=== PATIENT | female | born 1980 | race Two or more races ===

== ENCOUNTER 2019-09-16 08:41 | Emergency (ER) | payer OTHER ==
[2019-09-16 08:56] VITALS: TEMP 98.2
[2019-09-16] MEDS ORDERED: SODIUM CHLORIDE 0.9% 1,000 ML IV ONE ×2 (08:59)
[2019-09-16 09:36] LABS: Basophils # (A) 0.1 k/uL (0-0.2); Basophils % (A) 1 %; Eosinophils # (A) 0.1 k/uL (0-0.7); Eosinophils % (A) 2 %; HCT 46.8 % (34.0-46.0); HGB 15.6 gm/dL (11.4-16.0); Lymphocytes # (A) 2.7 k/uL (1.0-4.8); Lymphocytes % (A) 38 %; MCH 30.6 pg (25.0-35.0); MCHC 33.4 g/dL (31.0-37.0); MCV 91.7 fL (80.0-100.0); Mean Platelet Volume 7.2; Monocytes # (A) 0.4 k/uL (0-1.0); Monocytes % (A) 5 %; Neutrophils # (A) 3.6 k/uL (1.3-7.7); Neutrophils % (A) 51 %; Platelet Count 331 k/uL (150-450); RBC 5.11 m/uL (3.80-5.40); RDW 12.5 % (11.5-15.5)
[2019-09-16 09:49] LABS: INR 0.9 (<1.2); Partial Thromboplastin Time 24.4 sec (22.0-30.0); Prothrombin Time 9.9 sec (9.0-12.0)
[2019-09-16 09:56] LABS: Appearance,Urine Clear (Clear); Bilirubin,Urine Negative (Negative); Blood,Urine Large (Negative); Color,Urine Light Red; Glucose,Urine (UA) Negative (Negative); Ketones,Urine Negative (Negative); Leukocyte Esterase,Urine Negative (Negative); Mucus,Urine Occasional /hpf; Nitrite,Urine Negative (Negative); PH, Urine 5.5 (5.0-8.0); Protein,Urine Trace (Negative); RBC,Urine >182 /hpf (0-5); Specific Gravity,Urine 1.023 (1.001-1.035); Squamous Epithelial Cell,Urine <1 /hpf (0-4); Urobilinogen,Urine <2.0 mg/dL (<2.0); WBC,Urine 12 /hpf (0-5)
--- NOTE | 2019-09-16 09:58 | ED ---
Female Urogenital HPI - General Chief complaint: Vaginal Bleeding Stated complaint: 8 wks , vaginal bleeding Time Seen by Provider: 09/16/19 08:58 Source: patient, RN notes reviewed, old records reviewed Mode of arrival: ambulatory Limitations: no limitations - History of Present Illness Initial comments: Patient is a 38 rolled female, approximately 8 weeks . She is a female. Previous elective age 20. She states that she is approximately 8 weeks , does have an upcoming appointment with Dr. Reyes. She has not seen Dr. Reyes yet for this . She states that today she started have some lower abdominal cramping, heavy vaginal bleeding. Patient states that she's had no fevers or chills. She denies changes in urination. Last Menstrual Period: 07/24/19 - Related Data Allergies Allergy/AdvReac Type Severity Reaction Status Date / Time No Known Allergies Allergy Verified 09/16/19 08:56 Review of Systems ROS Statement: Those systems with pertinent positive or pertinent negative responses have been documented in the HPI. ROS Other: All systems not noted in ROS Statement are negative. Past Medical History Past Medical History: No Reported History History of Any Multi-Drug Resistant Organisms: None Reported Past Surgical History: No Surgical Hx Reported Past Psychological History: No Psychological Hx Reported Smoking Status: Never smoker Past Alcohol Use History: Rare Past Drug Use History: None Reported General Exam - General Exam Comments Initial Comments: This 38-year-old female. Alert and oriented. No acute distress. Limitations: no limitations General appearance: alert, in no apparent distress Head exam: Present: atraumatic, normocephalic, normal inspection Eye exam: Present: normal appearance, PERRL, EOMI. Absent: scleral icterus, conjunctival injection, periorbital swelling ENT exam: Present: normal exam, mucous membranes moist Neck exam: Present: normal inspection. Absent: tenderness, meningismus, lymphadenopathy Respiratory exam: Present: normal lung sounds bilaterally. Absent: respiratory distress, wheezes, rales, rhonchi, stridor Cardiovascular Exam: Present: regular rate, normal rhythm, normal heart sounds. Absent: systolic murmur, diastolic murmur, rubs, gallop, clicks GI/Abdominal exam: Present: soft, normal bowel sounds. Absent: distended, tenderness, guarding, rebound, rigid External exam: Present: normal external exam, other (Patient declined pelvic exam) Extremities exam: Present: normal inspection, full ROM, normal capillary refill. Absent: tenderness, pedal edema, joint swelling, calf tenderness Back exam: Present: normal inspection, full ROM Neurological exam: Present: alert Psychiatric exam: Present: normal affect, normal mood Skin exam: Present: warm, dry, intact, normal color. Absent: rash Course Vital Signs 09/16/19 08:53 Temperature 98.2 F Pulse Rate 93 Respiratory 18 Rate Blood Pressure 132/88 O2 Sat by Pulse 100 Oximetry Medical Decision Making - Medical Decision Making 8-year-old female, . She presents today partially weeks based off last menstrual period. She presents today for vaginal bleeding starting today. She is Rh+. HCG levels 3800. Patient's ultrasound shows a gestational sac but no heart rate. Discussed this is likely miscarriage. She declined pelvic exam. Patient appears in no distress and has no significant abdominal pain or tenderness. Discusses threatened miscarriage. I discussed the case with Dr. Smith who will have the Patient follow up with the office on Wednesday. I discussed repeating hCG level. All questions were answered return parameters discussed. - Lab Data Result diagrams: 09/16/19 09:17 Lab Results 09/16/19 09/16/19 09/16/19 Range/Units 09:17 09:17 09:17 WBC 7.0 (3.8-10.6) k/uL RBC 5.11 (3.80-5.40) m/uL Hgb 15.6 (11.4-16.0) gm/dL Hct 46.8 H (34.0-46.0) % MCV 91.7 (80.0-100.0) fL MCH 30.6 (25.0-35.0) pg MCHC 33.4 (31.0-37.0) g/dL RDW 12.5 (11.5-15.5) % Plt Count 331 (150-450) k/uL Neutrophils % 51 % Lymphocytes % 38 % Monocytes % 5 % Eosinophils % 2 % Basophils % 1 % Neutrophils # 3.6 (1.3-7.7) k/uL Lymphocytes # 2.7 (1.0-4.8) k/uL Monocytes # 0.4 (0-1.0) k/uL Eosinophils # 0.1 (0-0.7) k/uL Basophils # 0.1 (0-0.2) k/uL PT 9.9 (9.0-12.0) sec INR 0.9 (<1.2) APTT 24.4 (22.0-30.0) sec HCG, Quant mIU/mL Urine Color Urine Appearance (Clear) Urine pH (5.0-8.0) Ur Specific [place] (1.001-1.035) Urine Protein (Negative) Urine Glucose (UA) (Negative) Urine Ketones (Negative) Urine Blood (Negative) Urine Nitrite (Negative) Urine Bilirubin (Negative) Urine Urobilinogen (<2.0) mg/dL Ur Leukocyte Esterase (Negative) Urine RBC (0-5) /hpf Urine WBC (0-5) /hpf Ur Squamous Epith Cells (0-4) /hpf Urine Mucus (None) /hpf Urine HCG, Qual (Not Detectd) Blood Type O Positive Blood Type Recheck No Previous Record Bld Type Recheck Status [facility] ONLY 09/16/19 09/16/19 09/16/19 Range/Units 09:17 09:23 09:23 WBC (3.8-10.6) k/uL RBC (3.80-5.40) m/uL Hgb (11.4-16.0) gm/dL Hct (34.0-46.0) % MCV (80.0-100.0) fL MCH (25.0-35.0) pg MCHC (31.0-37.0) g/dL RDW (11.5-15.5) % Plt Count (150-450) k/uL Neutrophils % % Lymphocytes % % Monocytes % % Eosinophils % % Basophils % % Neutrophils # (1.3-7.7) k/uL Lymphocytes # (1.0-4.8) k/uL Monocytes # (0-1.0) k/uL Eosinophils # (0-0.7) k/uL Basophils # (0-0.2) k/uL PT (9.0-12.0) sec INR (<1.2) APTT (22.0-30.0) sec HCG, Quant 3227.3 mIU/mL Urine Color Light Red Urine Appearance Clear (Clear) Urine pH 5.5 (5.0-8.0) Ur Specific [place] 1.023 (1.001-1.035) Urine Protein Trace H (Negative) Urine Glucose (UA) Negative (Negative) Urine Ketones Negative (Negative) Urine Blood Large H (Negative) Urine Nitrite Negative (Negative) Urine Bilirubin Negative (Negative) Urine Urobilinogen <2.0 (<2.0) mg/dL Ur Leukocyte Esterase Negative (Negative) Urine RBC >182 H (0-5) /hpf Urine WBC 12 H (0-5) /hpf Ur Squamous Epith Cells <1 (0-4) /hpf Urine Mucus Occasional H (None) /hpf Urine HCG, Qual Detected (Not Detectd) Blood Type Blood Type Recheck Bld Type Recheck Status - Radiology Data Radiology results: report reviewed Ultrasound shows gestational sac in the lower uterus. No heart tone seen at this time. demise. Short-term follow-up and serially G suggested. Disposition Clinical Impression: Threatened miscarriage Disposition: HOME SELF-CARE Condition: Good Instructions (If sedation given, give patient instructions): Threatened Miscarriage (ED) Additional Instructions: Patient advised to repeat hCG level on Wednesday. Following up with [facility] office Wednesday. Patient shouldn't have pelvic rest, limit heavy lifting. Encourage fluid intake. Motrin or Tylenol for pain. Is patient prescribed a controlled substance at d/c from ED?: No Referrals: Lucía Sigala DO [Primary Care Provider] - 1-2 days Time of Disposition: 11:05
--- NOTE | 2019-09-16 10:31 | US ---
EXAMINATION TYPE: Transabdominal DATE OF EXAM: 09/16/2019 10:04 AM COMPARISON: NONE CLINICAL HISTORY: pain and bleeding. EXAM PERFORMED: Transabdominal (TA) EXAM MEASUREMENTS: GESTATIONAL AGE / DATING Physician Established: Not yet established Dates by LMP: (7 weeks/5 days) EDC: Dates by First Scan: No previous this is first scan Dates by Current Scan for: ( weeks/ days) EDC: MATERNAL ANATOMY Uterus: 12.9 x 7.0 x 9.2cm, fibroid uterus, largest measuring 4.0cm Right Ovary: 2.7 x 1.7 x 1.2cm Left Ovary: 1.0 x 1.0 x 1.1cm Post CDS / Adnexa: wnl Presence of free fluid: no Presence of subchorionic bleed: no GESTATION / SURVEY CRL: 0.4 (6 weeks/0 days) MSD: 1.0cm (5 weeks/ 0 days) Yolk Sac (normal less than 6mm): 3mm Heart Rate: no heart tones seen by m-mode, power doppler or color doppler. Gestational sac situ ated low in uterus. No heart tones seen at this time. Date of LMP: 07/24/19 Beta HcG (if available): IMPRESSION: NO HEART VALVE ACTIVITY IS NOTED AT THIS TIME. I COULD NOT EXCLUDE DEMISE. SHORT-TERM FOL LOW-UP +/- SERIAL BETA HCGS WOULD BE SUGGESTED.
[2019-09-16 11:22] VITALS: BP 115/68; PULSE 79; RESP 16
== END 2019-09-16 11:21 | disposition home or self-care (01) ==
LOC: EC 08:41
DX: O20.0 Threatened abortion (principal); Z3A.00 Weeks of gestation of pregnancy not specified
CPT/HCPCS: 36415; 76801; 81001; 81025; 84702; 85025; 85610; 85730; 86900; 86901; 96360; 96361; 99284

== ENCOUNTER → 2019-09-18 | Outpatient (CLI) | payer OTHER | END | disposition home or self-care (01) | LOC: LABWHC1 08:55 | PROVIDERS: ATTEND Physician Assistant Medical | DX: O20.0 Threatened abortion (principal) | CPT/HCPCS: 36415; 84702 ==

== ENCOUNTER → 2019-10-03 | Outpatient (CLI) | payer BC ==
[2019-10-03 23:28] LABS: HCG,Quantitative Serum <2.0 mIU/mL
[2019-10-04 02:55] LABS: Toxoplasma Antibody (IgG) <3.0 IU/mL (<7.2); Toxoplasma Antibody (IgM) <3.0 AU/mL (<8.0)
== END ==
LOC: LABWHC1 16:47
PROVIDERS: ATTEND Obstetrics & Gynecology
DX: O03.9 Complete or unspecified spontaneous abortion without complication (principal); Z13.29 Encounter for screening for other suspected endocrine disorder
CPT/HCPCS: 36415; 84439; 84443; 84702; 86777; 86778

== ENCOUNTER 2020-02-16 03:09 | Emergency (ER) | payer BC, OTHER ==
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
[2020-02-16 05:59] VITALS: BP 126/74; PULSE 89; RESP 118; TEMP 98.9
== END 2020-02-16 05:57 | disposition home or self-care (01) ==
LOC: EC 03:09
DX: Z04.1 Encounter for examination and observation following transport accident (principal); Y92.410 Unspecified street and highway as the place of occurrence of the external cause
CPT/HCPCS: 36415; 84702; 86900; 86901; 99284

== ENCOUNTER 2020-09-12 14:58 | Outpatient (CLI) | payer BC ==
[2020-09-12 15:31] LABS: Creatinine,Urine Random 61.9 mg/dL; Protein/Creatinine Ratio,Urine 0.178
[2020-09-12 15:47] LABS: Appearance,Urine Clear (Clear); Bilirubin,Urine Negative (Negative); Blood,Urine Negative (Negative); Color,Urine Light Yellow; Glucose,Urine (UA) Negative (Negative); Ketones,Urine 2+ (Negative); Leukocyte Esterase,Urine Negative (Negative); Nitrite,Urine Negative (Negative); Protein,Urine Negative (Negative); Specific Gravity,Urine 1.016 (1.001-1.035); Urobilinogen,Urine <2.0 mg/dL (<2.0)
[2020-09-12 15:50] LABS: Basophils % (A) 0 %; Eosinophils # (A) 0.1 k/uL (0-0.7); Eosinophils % (A) 1 %; HCT 37.3 % (34.0-46.0); HGB 12.4 gm/dL (11.4-16.0); Lymphocytes % (A) 20 %; MCH 30.4 pg (25.0-35.0); MCHC 33.2 g/dL (31.0-37.0); MCV 91.6 fL (80.0-100.0); Mean Platelet Volume 8.7; Monocytes # (A) 0.5 k/uL (0-1.0); Monocytes % (A) 5 %; Neutrophils # (A) 7.2 k/uL (1.3-7.7); Neutrophils % (A) 72 %; Platelet Count 259 k/uL (150-450); RBC 4.07 m/uL (3.80-5.40); RDW 13.5 % (11.5-15.5)
[2020-09-12 16:03] LABS: ALT 16 U/L (4-34); AST 20 U/L (14-36); African American GFR (CKD) >90 (>60 ml/min/1.73 sqM); Blood Urea Nitrogen 14 mg/dL (7-17); LDH 357 U/L (313-618); Non-African American GFR(CKD) >90 (>60 ml/min/1.73 sqM); Uric Acid 4.5 mg/dL (3.7-7.4)
--- NOTE | 2020-09-26 08:51 | P.MSEPDOC ---
Presenting Problems - Arrival Data Date of Arrival on Unit: 09/12/20 Time of Arrival on Unit: 15:00 Mode of Transport: Ambulatory Disposition - Disposition OB Disposition: Discharge to home Discharge Date: 09/12/20 Discharge Time: 16:52 I agree with the RN Medical Screening Exam: Yes Case reviewed; plan agreed upon as documented in EMR&OBIX.: Yes Diagnosis: GESTATIONAL HTN W/O SIGNIFICANT PROTEINURIA, THIRD TRIMESTER
== END 2020-09-12 16:52 | disposition home or self-care (01) ==
LOC: FBPOP 14:58
PROVIDERS: ATTEND Obstetrics & Gynecology
DX: O13.3 Gestational [pregnancy-induced] hypertension without significant proteinuria, third trimester (principal); Z3A.00 Weeks of gestation of pregnancy not specified
CPT/HCPCS: 59025; 81003; 82565; 82570; 83615; 84156; 84450; 84460; 84520; 84550; 85025; 99215

== ENCOUNTER → 2020-09-19 | Outpatient (CLI) | payer BC ==
[2020-09-19 16:55] LABS: Creatinine,Urine Random 46.9 mg/dL; Protein/Creatinine Ratio,Urine 0.213
[2020-09-19 23:35] LABS: HGB 11.9 g/dL (12.0-15.0); MCH 29.8 pg (27.0-32.0); MCHC 32.2 g/dL (32.0-37.0); MCV 92.7 fL (80.0-97.0); Mean Platelet Volume 11.2 fL (9.5-12.2); Platelet Count 264 X 10*3/uL (140-440); RBC 3.99 X 10*6/uL (4.10-5.20); RDW 12.6 % (11.5-14.5); WBC 9.04 X 10*3/uL (4.50-10.00)
[2020-09-20 06:40] LABS: Non-African American GFR(CKD) 116.4 (60.0-200.0); Uric Acid 4.4 mg/dL (2.9-7.7)
== END | disposition home or self-care (01) ==
LOC: LABWHC1 15:00
PROVIDERS: ATTEND Obstetrics & Gynecology
DX: O13.9 Gestational [pregnancy-induced] hypertension without significant proteinuria, unspecified trimester (principal); Z3A.00 Weeks of gestation of pregnancy not specified
CPT/HCPCS: 36415; 82565; 82570; 83615; 84156; 84450; 84460; 84520; 84550; 85027

== ENCOUNTER 2020-10-01 06:12 | Inpatient (IN) | payer BC ==
--- NOTE | 2020-09-30 12:31 | P.HPOB ---
History of Present Illness H&P Date: 09/30/20 Chief Complaint: Gestational HTN, Gestational DM This is a 39 y.o. female, 3, para 0, with an estimated date of confinement of 10/18/2020, estimated gestational age of 37-4/7 weeks, who presents for induction of labor due to gestational hypertension. Labs have been negative for preeeclampsia and she has no symptoms other than elevated blood pressures. Her has also been complicated by gestational diabetes and has been controlled with diet. She has been seen by MFM and has been getting twice weekly NSTs and growth ultrasounds. She does have several large fibroids. labs: Hepatitis B surface antigen-neg RPR-NR Rubella-immune Blood type-O+ Antibody screen-neg Hemoglobin-13.4 Toxoplasma-neg Quad-neg 1 hr. GTT-181; 3 hr. GTT-all high Group B streptococcus-positive OB Hx: . History of 1 termination and 1 miscarriage. 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 Hx of uterine fibroids Social Hx: . Works at [employer]. Review of Systems Constitutional: Denies chills, Denies fever Eyes: denies blurred vision, denies pain Ears, nose, mouth and throat: Denies headache, Denies sore throat Cardiovascular: Denies chest pain, Denies shortness of breath Respiratory: Denies cough Gastrointestinal: Reports abdominal pain (irreg. ctxs) Genitourinary: Reports pelvic pain, Reports Musculoskeletal: Reports low back pain Integumentary: Denies pruritus, Denies rash Neurological: Denies numbness, Denies weakness Psychiatric: Denies anxiety, Denies depression Past Medical History Additional Past Medical History / Comment(s): Uterine fibroids; Gestational hypertension; Gestational diabetes History of Any Multi-Drug Resistant Organisms: None Reported Past Surgical History: No Surgical Hx Reported Past Psychological History: No Psychological Hx Reported Smoking Status: Never smoker Past Alcohol Use History: None Reported Past Drug Use History: None Reported - Past Family History Mother Family Medical History: Unable to Obtain (Pt. adopted) Medications and Allergies Home Medications Medication Instructions Recorded Confirmed Type Aspirin 81 mg PO DAILY 09/12/20 09/12/20 History Pnv No.95/Ferrous Fum/Folic AC 1 each PO DAILY 09/12/20 09/12/20 History [ Multivitamin Tablet] Allergies Allergy/AdvReac Type Severity Reaction Status Date / Time No Known Allergies Allergy Verified 02/16/20 03:16 Exam Osteopathic Statement: *. No significant issues noted on an osteopathic structural exam other than those noted in the History and Physical/Consult. HEENT: within normal limits Heart: regular rate and rhythm Lungs: clear to auscultation bilaterally Abdomen: , non-tender heart tones: 150's by doppler Cervix: 1-1.5 cm/50%/-2 Extremities: neg. Leticia's Assessment and Plan (1) 37 weeks gestation of Status: Acute Code(s): Z3A.37 - 37 WEEKS GESTATION OF SNOMED Code(s): 52952753 (2) Gestational hypertension Status: Acute Code(s): O13.9 - GESTATIONAL HTN W/O SIGNIFICANT PROTEINURIA, UNSP TRIMESTER SNOMED Code(s): 613063637 (3) Gestational diabetes Status: Acute Code(s): O24.419 - GESTATIONAL DIABETES MELLITUS IN , UNSP CONTROL SNOMED Code(s): 73353566 (4) Advanced maternal age (AMA) in Status: Acute Code(s): VAT0696 - SNOMED Code(s): 502332586 (5) Leiomyoma in , uterine, antepartum Status: Acute Code(s): O34.10 - MATERNAL CARE FOR BENIGN TUMOR OF CORPUS UTERI, UNSP TRI; D25.9 - LEIOMYOMA OF UTERUS, UNSPECIFIED SNOMED Code(s): 04074785 (6) Group B Streptococcus carrier, +RV culture, currently Status: Acute Code(s): O99.820 - STREPTOCOCCUS B CARRIER STATE COMPLICATING SNOMED Code(s): 1921841370877 Plan: Admission for induction of labor. Will monitor sugars and blood pressures. Antibiotic prophylaxis for GBS. Epidural anesthesia if desired. Expectant management.
[2020-10-01] MEDS ORDERED: OXYTOCIN 30 UNITS/500 ML NS 30 UNIT in SALINE 1 500ML.BAG IV SCH ×2 (06:32→22:09)
[2020-10-01] MEDS ORDERED: OXYTOCIN 10 UNIT/ML 1 ML VIAL IM PRN (06:32)
[2020-10-01] MEDS ORDERED: LIDOCAINE 1% (10MG/ML) FOR IV START INTRADERMA PRN (06:32)
[2020-10-01] MEDS ORDERED: METHYLERGONOVINE 0.2 MG/ML 1 ML AMP IM PRN (06:32)
[2020-10-01] MEDS ORDERED: LIDOCAINE 0.5% (PF) 5 MG/ML (50 ML SDV) SQ PRN (06:32)
[2020-10-01] MEDS ORDERED: CARBOPROST TROMETHAMINE 250 MCG/ML 1 ML AMP IM PRN (06:32)
[2020-10-01] MEDS ORDERED: TERBUTALINE 1 MG/ML VIAL SQ PRN (06:32)
[2020-10-01 06:47] LABS: Basophils # (A) 0.1 k/uL (0-0.2); Basophils % (A) 1 %; Eosinophils # (A) 0.1 k/uL (0-0.7); Eosinophils % (A) 1 %; HCT 37.6 % (34.0-46.0); HGB 12.4 gm/dL (11.4-16.0); Lymphocytes # (A) 1.7 k/uL (1.0-4.8); Lymphocytes % (A) 23 %; MCH 29.9 pg (25.0-35.0); MCHC 32.9 g/dL (31.0-37.0); MCV 90.9 fL (80.0-100.0); Mean Platelet Volume 8.7; Monocytes # (A) 0.5 k/uL (0-1.0); Monocytes % (A) 6 %; Neutrophils # (A) 5.2 k/uL (1.3-7.7); Neutrophils % (A) 69 %; Platelet Count 252 k/uL (150-450); RBC 4.14 m/uL (3.80-5.40); RDW 12.9 % (11.5-15.5); WBC 7.6 k/uL (3.8-10.6)
[2020-10-01 06:51] LABS: Glucose,Whole Blood 80 mg/dL (75-99)
[2020-10-01] MEDS: LACTATED RINGERS 1,000 ML IV SCH ×2 (06:59→15:26)
[2020-10-01 09:32] LABS: Glucose,Whole Blood 71 mg/dL (75-99)
[2020-10-01] MEDS: AMPICILLIN 1,000 MG in SODIUM CHLORIDE 0.9% 50 ML IVPB SCH ×3 (10:55→19:13)
[2020-10-01 11:46] LABS: Glucose,Whole Blood 68 mg/dL (75-99)
[2020-10-01] MEDS: BUTORPHANOL 1 MG/ML 1 ML VIAL IV PRN ×2 (15:01→17:06)
--- NOTE | 2020-10-01 15:06 | P.PN ---
Progress Note - Text Progress Note Date: 10/01/[address] epidural catheter 3 times for the laboring patient. I was able to achieve loss of resistance each time, however on each attempt I was unable to thread the epidural catheter even with dilating the space with normal saline. I asked the patient if she would like me to attempt again, she said she would not like to try again as the procedure was uncomfortable. Patient did not experience any neurologic symptoms or radicular pain during the procedure and according to her has no history of back issues.
[2020-10-01 15:07] LABS: Glucose,Whole Blood 76 mg/dL (75-99)
[2020-10-01 15:17] LABS: Hemoglobin A1C 5.5 % (4.0-6.0)
[2020-10-01] MEDS ORDERED: LABETALOL 5 MG/ML VIAL MDV IVP STA ×3 (15:56→17:00)
[2020-10-01] MEDS: LABETALOL 5 MG/ML VIAL MDV IVP STA ×2 (16:10→16:27)
[2020-10-01] MEDS ORDERED: hydrALAZINE HCL 20 MG/ML 1 ML VIAL IVP STA ×2 (17:18)
[2020-10-01 18:56] LABS: Glucose,Whole Blood 143 mg/dL (75-99)
[2020-10-01] MEDS ORDERED: CITRIC ACID-SODIUM CITRATE 15 ML CUP PO ONE (19:46)
[2020-10-01] MEDS ORDERED: MORPHINE SULFATE (PF) 0.3 MG/0.3 ML SYR ONE (19:54)
[2020-10-01] MEDS ORDERED: ONDANSETRON 4 MG/2 ML VIAL ONE (19:54)
[2020-10-01] MEDS ORDERED: KETOROLAC 15 MG/ML 1 ML VIAL ONE (19:54)
[2020-10-01] MEDS ORDERED: fentaNYL (PF) 50 MCG/ML 2 ML AMP ONE (19:54)
[2020-10-01] MEDS ORDERED: OXYTOCIN 10 UNIT/ML 1 ML VIAL ONE (19:54)
--- NOTE | 2020-10-01 20:53 | P.OP ---
Date of Procedure: 10/01/20 Preoperative Diagnosis: 1. Intrauterine at 37-5/7 weeks. 2. Gestational hypertension. 3. Gestational diabetes. 4. Failure to progress 5. Advanced maternal age 6. Group B streptococcus carrier. 7. Uterine leiomyoma. Postoperative Diagnosis: Same Procedure(s) Performed: Primary low transverse section Anesthesia: spinal (Duramorph) Surgeon: Sadia Reyes [facility] Consultant #1: Edilma Garcia Estimated Blood Loss (ml): 300 Pathology: other (Placenta) Condition: stable Disposition: floor Indications for Procedure: This is a 39-year-old female 3 para 0 at 37-5/7 weeks who presented for induction of labor due to gestational hypertension. Her was also complicated by uterine fibroids and gestational diabetes. She underwent oxytocin induction of labor. She did receive multiple doses of antibiotics due to positive group B streptococcus carrier. Epidural was attempted but was unavailable be placed. She was given Stadol for pain control. She also required multiple doses of labetalol and 1 dose of hydralazine to control her blood pressures during labor. All of her pre-eclamptic labs were negative. She had no other symptoms. She pushed for over 2 hours and was unable to bring the head down any further. There was noted to be some caput at this time. In addition the patient was exhausted and was requesting section. I have discussed the risks, benefits, and alternative therapies for the above- mentioned procedure and for both sedation/anesthesia as well as necessary blood products administration, if indicated, as they pertain to this patient. The patient has indicated her understanding and acceptance of the risks and procedures discussed. Operative Findings: A viable female is noted with scores of 6 at 1 minute and 9 at 5 minutes and infant weight of 5 pounds 13.8 ounces. Nuchal cord times one was noted. There was a large amount of caput noted. Mother is in stable condition. was transported to nursery for further evaluation. Fairly large uterine fibroids were noted especially on the left fundal region. Description of Procedure: The patient is taken to the operating room where she is placed in the dorsal supine position with leftward tilt after spinal Duramorph anesthesia is given. She is prepped and draped in the normal sterile fashion. Skin was tested and found to be adequately anesthetized. A Pfannenstiel skin incision was made with a scalpel. A second knife was used to carry the incision down to the underlying layer of fascia. The fascia was nicked in the midline with a scalpel and then extended laterally bilaterally with Ngo scissors. The anterior lip of the fascia was grasped with 2 Julienne clamps and then dissected off the underlying rectus muscle in the midline with Ngo scissors. The inferior aspect of the fascial incision was grasped with 2 Julienne clamps and dissected off the underlying rectus muscle and the midline with Ngo scissors. Next the peritoneum layer was tented up with 2 hemostats and then entered sharply with the scalpel. The incision is extended superiorly and inferiorly with Metzenbaum scissors. Next a DeLee retractor is placed. The vesicouterine peritoneum is entered sharply with Metzenbaum scissors and extended laterally bilaterally with Metzenbaum scissors and then the bladder flap is pushed inferiorly. The lower uterine segment is incised in transverse fashion with the scalpel and then bluntly entered with a hemostat. Clear fluid is noted. The incision was then extended laterally bilaterally with 2 fingers. Next the 's head is delivered through the incision. Nose and mouth are bulb suctioned. The remainder of the is easily delivered and placed on mother's abdomen. Cord is clamped and cut. is taken to warmer by nursing staff. Uterine fundus is gently massaged and placenta is delivered manually. Uterus was unable to be exteriorized due to large fibroids on the fundal area and the left fundus especially. The DeLee retractor was replaced for visualization. Uterine incision is closed with 0 Vicryl suture in a running locked fashion. A second layer of 0 Vicryl suture is used in a running fashion for hemostasis. Once adequate hemostasis as assured, the vesicouterine peritoneum is reapproximated with 2-0 Vicryl suture in a running fashion. Posterior cul-de-sac is suctioned of all clots and debris. Incision is noted to be hemostatic. Peritoneal layer is closed with 0 Vicryl suture in a running fashion. Muscle layer is reapproximated with 0 Vicryl suture in interrupted fashion. Fascia layer is then closed with 0 PDS suture with 2 sutures meeting in the midline and the knots buried in either side and in the midline. The subcutaneous tissue was then closed with 2-0 Vicryl suture. Skin layer was then closed with tyler. All sponge and needle counts are correct. The patient is taken to recovery room in stable condition.
[2020-10-01] MEDS ORDERED: LANOLIN CREAM 5 GM TUBE TOPICAL PRN (22:09)
[2020-10-01] MEDS ORDERED: diphenhydrAMINE 50 MG/ML 1 ML VIAL IVP PRN ×2 (22:09)
[2020-10-01] MEDS ORDERED: HYDROcodone/APAP 7.5-325MG 1 EACH TAB PO PRN (22:09)
[2020-10-01] MEDS ORDERED: ONDANSETRON 4 MG/2 ML VIAL IVP PRN (22:09)
[2020-10-01] MEDS ORDERED: diphenhydrAMINE 50 MG CAP PO PRN (22:09)
[2020-10-01] MEDS ORDERED: ACETAMINOPHEN TAB 325 MG TAB PO PRN (22:09)
[2020-10-01] MEDS ORDERED: ZOLPIDEM 5 MG TAB PO PRN (22:09)
[2020-10-01] MEDS ORDERED: METOCLOPRAMIDE 5 MG/ML 2 ML VIAL IVP PRN (22:09)
[2020-10-01] MEDS ORDERED: NALOXONE 0.4 MG/ML 1 ML VIAL IV PRN (22:09)
[2020-10-01] MEDS ORDERED: SIMETHICONE 80 MG CHEWABLE PO PRN (22:09)
[2020-10-01] MEDS ORDERED: diphenhydrAMINE 25 MG CAP PO PRN (22:09)
[2020-10-01] MEDS ORDERED: KETOROLAC 15 MG/ML 1 ML VIAL IVP PRN (22:09)
[2020-10-02 06:49] LABS: Basophils % (A) 0 %; Eosinophils % (A) 0 %; HCT 35.7 % (34.0-46.0); HGB 11.4 gm/dL (11.4-16.0); Lymphocytes # (A) 1.7 k/uL (1.0-4.8); Lymphocytes % (A) 8 %; MCH 29.8 pg (25.0-35.0); MCV 93.1 fL (80.0-100.0); Mean Platelet Volume 8.9; Monocytes % (A) 5 %; Neutrophils # (A) 18.2 k/uL (1.3-7.7); Neutrophils % (A) 87 %; Platelet Count 277 k/uL (150-450); RBC 3.84 m/uL (3.80-5.40); RDW 13.1 % (11.5-15.5); WBC 21.1 k/uL (3.8-10.6)
--- NOTE | 2020-10-02 06:50 | P.PN ---
Progress Note - Text Progress Note Date: 10/02/20 Postoperative day 1 status post section under spinal anesthesia, and intrathecal morphine given for postoperative analgesia, patient doing well, there is no anesthesia related complications Patient had no headache, vital signs stable Assessment and plan = postop day 1 status post , doing well there is no anesthesia related complication
[2020-10-02] MEDS: SENNOSIDES-DOCUSATE SODIUM 1 EACH TAB PO SCH ×2 (08:16→22:11)
--- NOTE | 2020-10-02 08:42 | P.PNOBGPC ---
Subjective - Subjective Principal diagnosis: S/P Primary LTCS POD#1, Gestational HTN, GDM, Fibroids Interval history: Pt. doing ok. Working on breast-feeding. No flatus or BM yet. Patient reports: Reports pain well controlled [place]: doing well, nursing well Objective - Vital Signs Latest vital signs: Vital Signs Temp Pulse Resp BP Pulse Ox 10/02/20 08:00 98.3 F 81 16 115/68 98 10/02/20 04:00 98.1 F 75 16 99/58 99 10/02/20 00:30 98.0 F 10/02/20 00:00 97.9 F 66 16 113/62 10/01/20 22:49 98.0 F 61 16 118/75 10/01/20 22:19 97.9 F 60 16 117/69 10/01/20 21:49 64 16 112/66 10/01/20 21:34 62 16 116/67 10/01/20 21:19 63 16 110/62 10/01/20 21:04 63 16 108/59 10/01/20 20:49 97.3 F L 61 18 104/55 97 Intake and Output 10/01/20 10/02/20 10/02/20 22:59 06:59 14:59 Output Total 1050 400 Balance -1050 -400 Output: Urine 150 400 Uretheral (Shin) 200 Estimated Blood Loss 900 - Exam Extremities: Present: normal. Absent: tenderness Abdomen: Present: soft (faint BS x 4), distention Incision: Present: normal, dry, intact. Absent: erythematous Uterus: Present: normal, firm. Absent: tenderness - Labs Labs: Abnormal Lab Results - Last 24 Hours (Table) 10/01/20 10/01/20 10/01/20 Range/Units 09:30 11:44 18:52 WBC (3.8-10.6) k/uL Neutrophils # (1.3-7.7) k/uL POC Glucose (mg/dL) 71 L 68 L 143 H (75-99) mg/dL 10/02/20 Range/Units 06:16 WBC 21.1 H (3.8-10.6) k/uL Neutrophils # 18.2 H (1.3-7.7) k/uL POC Glucose (mg/dL) (75-99) mg/dL Assessment and Plan Assessment: S/P PLTCS POD#1 Gestational HTN, currently well-controlled GDM-diet controlled (1) 37 weeks gestation of Current Visit: No Status: Acute Code(s): Z3A.37 - 37 WEEKS GESTATION OF SNOMED Code(s): 23988422 (2) Gestational hypertension Current Visit: No Status: Acute Code(s): O13.9 - GESTATIONAL HTN W/O SIGNIFICANT PROTEINURIA, UNSP TRIMESTER SNOMED Code(s): 688003579 (3) Gestational diabetes Current Visit: No Status: Acute Code(s): O24.419 - GESTATIONAL DIABETES MELLITUS IN , UNSP CONTROL SNOMED Code(s): 47126685 (4) Advanced maternal age (AMA) in Current Visit: No Status: Acute Code(s): QFU8073 - SNOMED Code(s): 679513364 (5) Leiomyoma in , uterine, antepartum Current Visit: No Status: Acute Code(s): O34.10 - MATERNAL CARE FOR BENIGN TUMOR OF CORPUS UTERI, UNSP TRI; D25.9 - LEIOMYOMA OF UTERUS, UNSPECIFIED SNOMED Code(s): 79435380 (6) Group B Streptococcus carrier, +RV culture, currently Current Visit: No Status: Acute Code(s): O99.820 - STREPTOCOCCUS B CARRIER STATE COMPLICATING SNOMED Code(s): 0293342270671 Plan: Cont. postop care. Encouraged ambulation. May advance diet after flatus. Will monitor BP.
[2020-10-02] MEDS: LACTATED RINGERS 1,000 ML IV SCH ×3 (08:48→17:31)
[2020-10-03] MEDS: IBUPROFEN 600 MG TAB PO PRN ×2 (07:14→17:08)
[2020-10-03] MEDS: SENNOSIDES-DOCUSATE SODIUM 1 EACH TAB PO SCH ×2 (08:58→22:07)
--- NOTE | 2020-10-03 11:38 | P.PNOBGPC ---
Subjective - Subjective Principal diagnosis: S/P PLTCS POD#2 Interval history: Pt. c/o more soreness today. Still working on breast-feeding. Baby on bili light. Passing flatus, but no BM yet. Has been ambulating. Only taking Motrin for pain. Doesn't want the [place]. Did get behind on pain meds yesterday. Bleeding minimal. Patient reports: Reports appetite normal, Reports voiding normally, Reports ambulating normally [place]: doing well, nursing well Objective - Vital Signs Latest vital signs: Vital Signs Temp Pulse Resp BP Pulse Ox 10/03/20 08:00 98.4 F 82 16 153/77 10/03/20 00:00 98.0 F 108 H 14 134/77 98 10/02/20 20:00 98.8 F 64 14 144/84 98 10/02/20 16:00 98.8 F 80 16 148/90 96 10/02/20 11:48 97.6 F 90 16 130/82 98 Intake and Output 10/02/20 10/03/20 10/03/20 22:59 06:59 14:59 Output Total 300 Balance -300 Output: Urine 300 Other: # Voids 0 1 - Exam Extremities: Present: normal. Absent: tenderness Abdomen: Present: normal appearance, soft (+BS x 4.), distention (less), tender ness (mild) Incision: Present: normal, dry, intact. Absent: erythematous Uterus: Present: normal, firm. Absent: tenderness Assessment and Plan Assessment: S/P PLTCS POD#2 Gestational HTN Gestational DM Uterine fibroids (1) 37 weeks gestation of Current Visit: No Status: Acute Code(s): Z3A.37 - 37 WEEKS GESTATION OF SNOMED Code(s): 72634049 (2) Gestational hypertension Current Visit: No Status: Acute Code(s): O13.9 - GESTATIONAL HTN W/O SIGNIFICANT PROTEINURIA, UNSP TRIMESTER SNOMED Code(s): 155823097 (3) Gestational diabetes Current Visit: No Status: Acute Code(s): O24.419 - GESTATIONAL DIABETES MELLITUS IN , UNSP CONTROL SNOMED Code(s): 76441891 (4) Advanced maternal age (AMA) in Current Visit: No Status: Acute Code(s): HAC0216 - SNOMED Code(s): 416494108 (5) Leiomyoma in , uterine, antepartum Current Visit: No Status: Acute Code(s): O34.10 - MATERNAL CARE FOR BENIGN TUMOR OF CORPUS UTERI, UNSP TRI; D25.9 - LEIOMYOMA OF UTERUS, UNSPECIFIED SNOMED Code(s): 23571239 (6) Group B Streptococcus carrier, +RV culture, currently Current Visit: No Status: Acute Code(s): O99.820 - STREPTOCOCCUS B CARRIER STATE COMPLICATING SNOMED Code(s): 2393678231456 Plan: Will work on keeping up with pain meds today. Encouraged to take ibuprofen every 6 hours and alternate with Tylenol if needed.
[2020-10-03] MEDS: HYDROcodone/APAP 5-325MG 1 EACH TAB PO PRN (23:49)
[2020-10-04] MEDS: IBUPROFEN 600 MG TAB PO PRN ×2 (08:16→19:26)
--- NOTE | 2020-10-04 09:00 | P.PNOBGPC ---
Subjective - Subjective Principal diagnosis: Status post primary section postoperative day #3 Interval history: Patient is doing okay. Her pain is fairly well controlled with ibuprofen. She did take 1 dose of [place] last night. Lochia is decreasing. She is passing flatus and some bowel movement. She is still worried about her baby not feeding well and has been converting to bottle since she is unable to produce enough milk. Baby is still on a bili light. Patient reports: Reports appetite normal, Reports voiding normally, Reports pain well controlled, Reports ambulating normally : bottle feeding Objective - Vital Signs Latest vital signs: Vital Signs Temp Pulse Resp BP Pulse Ox 10/04/20 07:44 97.9 F 77 16 147/96 10/04/20 00:17 97.9 F 68 16 136/85 98 10/03/20 18:03 97.8 F 99 16 148/82 10/03/20 17:02 98.4 F 10/03/20 13:04 98.9 F 74 16 152/89 - Exam Extremities: Present: normal. Absent: tenderness Abdomen: Present: normal appearance, soft (Positive bowel sounds 4), distention (Slight), tenderness (Mild) Incision: Present: normal, dry, intact. Absent: erythematous Uterus: Present: normal, firm. Absent: tenderness Assessment and Plan Assessment: S/P PLTCS POD#3 Gestational HTN Gestational DM Uterine fibroids (1) 37 weeks gestation of Current Visit: No Status: Acute Code(s): Z3A.37 - 37 WEEKS GESTATION OF SNOMED Code(s): 71886268 (2) Gestational hypertension Current Visit: No Status: Acute Code(s): O13.9 - GESTATIONAL HTN W/O SIGNIFICANT PROTEINURIA, UNSP TRIMESTER SNOMED Code(s): 761791972 (3) Gestational diabetes Current Visit: No Status: Acute Code(s): O24.419 - GESTATIONAL DIABETES MELLITUS IN , UNSP CONTROL SNOMED Code(s): 97930504 (4) Advanced maternal age (AMA) in Current Visit: No Status: Acute Code(s): PNO1093 - SNOMED Code(s): 941272772 (5) Leiomyoma in , uterine, antepartum Current Visit: No Status: Acute Code(s): O34.10 - MATERNAL CARE FOR BENIGN TUMOR OF CORPUS UTERI, UNSP TRI; D25.9 - LEIOMYOMA OF UTERUS, UNSPECIFIED SNOMED Code(s): 39613696 (6) Group B Streptococcus carrier, +RV culture, currently Current Visit: No Status: Acute Code(s): O99.820 - STREPTOCOCCUS B CARRIER STATE COMPLICATING SNOMED Code(s): 4595322803677 Plan: Patient is still having some isolated elevated blood pressures but not enough to treat. She denies any other symptoms of headaches, blurry vision, or epigastric pain. She is doing better with her pain control. This baby is still on the bili light, I have suggested that she might want to stay 1 more day even if baby is able to go home. I will check back later today and see how baby is and if patient feels that she is ready to go home today or not. I Will order a breast pump so that she can at least try to pump some of her breast milk and give that baby also.
[2020-10-04] MEDS: SENNOSIDES-DOCUSATE SODIUM 1 EACH TAB PO SCH ×2 (10:47→21:31)
[2020-10-04] MEDS: LABETALOL 200 MG TAB PO SCH ×2 (12:21→21:30)
[2020-10-04] MEDS: HYDROcodone/APAP 5-325MG 1 EACH TAB PO PRN (21:30)
--- NOTE | 2020-10-05 06:32 | P.PNOBGPC ---
Subjective - Subjective Principal diagnosis: Status post primary section postoperative day #4 Interval history: Patient is feeling better today. She is passing flatus and bowel movement. She is urinating without difficulty. She states that her pain is much better using [place]. She is bottle feeding at this time. Lochia is minimal. She denies any headaches or blurry vision. Patient reports: Reports appetite normal, Reports voiding normally, Reports pain well controlled, Reports ambulating normally [place]: doing well (Still on a bili blanket), bottle feeding Objective - Vital Signs Latest vital signs: Vital Signs Temp Pulse Resp BP BP Pulse Ox 10/04/20 21:00 97.9 F 76 16 154/86 97 10/04/20 13:49 82 14 131/89 10/04/20 12:00 76 16 169/108 10/04/20 11:56 97.6 F 71 16 160/101 10/04/20 07:44 97.9 F 77 16 147/96 - Exam Extremities: Present: normal, edema (Trace) Abdomen: Present: normal appearance, soft (Positive bowel sounds 4). Absent: distention, tenderness Incision: Present: normal, dry, intact. Absent: erythematous Uterus: Present: normal, firm. Absent: tenderness Assessment and Plan Assessment: Status post primary section postoperative day #4 Gestational hypertension Gestational diabetes Uterine fibroids (1) 37 weeks gestation of Current Visit: No Status: Acute Code(s): Z3A.37 - 37 WEEKS GESTATION OF SNOMED Code(s): 24299708 (2) Gestational hypertension Current Visit: No Status: Acute Code(s): O13.9 - GESTATIONAL HTN W/O SIGNIFICANT PROTEINURIA, UNSP TRIMESTER SNOMED Code(s): 472271680 (3) Gestational diabetes Current Visit: No Status: Acute Code(s): O24.419 - GESTATIONAL DIABETES MELLITUS IN , UNSP CONTROL SNOMED Code(s): 94559205 (4) Advanced maternal age (AMA) in Current Visit: No Status: Acute Code(s): MFZ7375 - SNOMED Code(s): 890930772 (5) Leiomyoma in , uterine, antepartum Current Visit: No Status: Acute Code(s): O34.10 - MATERNAL CARE FOR BENIGN TUMOR OF CORPUS UTERI, UNSP TRI; D25.9 - LEIOMYOMA OF UTERUS, UNSPECIFIED SNOMED Code(s): 30646687 (6) Group B Streptococcus carrier, +RV culture, currently Current Visit: No Status: Acute Code(s): O99.820 - STREPTOCOCCUS B CARRIER STATE COMPLICATING SNOMED Code(s): 7425414825711 Plan: Patient is anxious to go home today however her blood pressure this morning was elevated at 165/95. She has been on labetalol 200 mg twice a day since yesterday. Since labetalol did not work very well for her in labor, I will discontinue this and switch to Procardia 30 XL daily starting this morning. If her blood pressures improve, I will send her home on Procardia and have her follow up with me in the office within 1 week for a blood pressure check. If baby does need to stay another day, I will keep her 1 more day to ensure that her blood pressures stay stable.
--- NOTE | 2020-10-05 06:42 | P.DS ---
Providers Date of admission: 10/01/20 06:12 Expected date of discharge: 10/05/20 Attending physician: Sadia Reyes Primary care physician: Stated None - Discharge Diagnosis(es) (1) 37 weeks gestation of Current Visit: No Status: Acute (2) Gestational hypertension Current Visit: No Status: Acute (3) Gestational diabetes Current Visit: No Status: Acute (4) Advanced maternal age (AMA) in Current Visit: No Status: Acute (5) Leiomyoma in , uterine, antepartum Current Visit: No Status: Acute (6) Group B Streptococcus carrier, +RV culture, currently Current Visit: No Status: Acute Hospital Course: This is a 39-year-old female 3 para 0 at 37-5/7 weeks who presented for induction of labor due to gestational hypertension. She underwent oxytocin induction of labor and did require multiple doses of labetalol followed by Apresoline while in labor to control her blood pressures. She then required a primary section due to failure to descend after pushing for almost 2 hours. She delivered a viable female infant with scores of 6 at 1 minute and 9 at 5 minutes and infant weight of 5 lbs. 14 oz. on 10/01/2020 via section. Postoperatively she did initially do well but then her blood pressure started elevating again. She did have some pain control issues at first and currently is more controlled on ibuprofen and Miracle. Her lochia is minimal. She is urinating without difficulty. She is passing flatus and bowel movements. She denies any headaches or blurry vision or epigastric pain. She was attempting breast-feeding but has switched to bottle feeding currently. Her baby has been on a bili light due to jaundice. Vital signs are stable other than her blood pressure was elevated this morning at 165/95. Abdomen is soft with positive bowel sounds 4. Incision is clean dry and intact with tyler in place. Extremities show negative Hom[place] with trace edema. Impression is status post primary low transverse section postoperative day #4, gestational hypertension, gestational diabetes, uterine fibroids. Plan is to switch from labetalol to Procardia 30 XL this morning. As long as her blood pressures are stable on this medication, I will discharge her later today. She also has been counseled regarding opioid use and has signed a consent form for Miracle. She will be given prescriptions for ibuprofen and Miracle. She also is advised follow-up in the office within 1 week for a postoperative appointment and in 6 weeks for a appointment. She is advised to call the office if she has any further questions or concerns prior to her appointment time. [place] will be removed and Steri-Strips placed prior to discharge. Procedures: Oxytocin induction of labor Primary low transverse section for a viable female infant on 10/01/2020 Patient Condition at Discharge: Stable Plan - Discharge Summary New Discharge Prescriptions: New Ibuprofen [Motrin] 600 mg PO Q6HR PRN #60 tab PRN Reason: Mild Pain Or Fever >= 100.5 HYDROcodone/APAP 5-325MG [Miracle 5-325] 1 each PO Q4HR PRN #30 tab PRN Reason: Moderate Pain NIFEdipine XL [Procardia XL] 30 mg PO DAILY #30 tab.er.24 Continue Pnv No.95/Ferrous Fum/Folic AC [ Multivitamin Tablet] 1 each PO DAILY Discontinued Aspirin 81 mg PO DAILY Discharge Medication List Pnv No.95/Ferrous Fum/Folic AC [ Multivitamin Tablet] 1 each PO DAILY 09/12/20 [History] HYDROcodone/APAP 5-325MG [Miracle 5-325] 1 each PO Q4HR PRN #30 tab 10/05/20 [Rx] Ibuprofen [Motrin] 600 mg PO Q6HR PRN #60 tab 10/05/20 [Rx] NIFEdipine XL [Procardia XL] 30 mg PO DAILY #30 tab.er.24 10/05/20 [Rx] Follow up Appointment(s)/Referral(s): Sadia Reyes DO [Doctor of Osteopathic Medicine] - 1 Week Activity/Diet/Wound Care/Special Instructions: Instructions 1. Do not begin any exercise program for 3 weeks. 2. Do not resume sexual relations for 3 weeks or longer if uncomfortable. 3. You may take tub baths or showers at any time. 4. You may use tampons if desired after 3 weeks. 5. Keep the area of episiotomy (stitches) clean and dry. 6. If you are not nursing, wear a good fitting, supportive bra during the day and limit fluid intake for at least 1 week to prevent breast engorgement. 7. Call the office, [phone], within the next week to make appointment for your 6 week checkup if it has not already been made. 8. Report any of the following occurrences to the doctor promptly: a. Heavy, excessive bleeding b. Chills, fever c. Burning or frequency of urination d. Pain or redness and breasts if nursing e. Increasing pain or swelling in episiotomy (stitches). In addition to the above instructions, the following additional should be followed: 1. No heavy lifting or straining (exercising) until after 6 week checkup. 2. Keep abdominal incision clean and dry: You may wear a dressing if more comfortable. 3. Make office appointment for 10 days after going home or as instructed by her doctor. Discharge Disposition: HOME SELF-CARE
[2020-10-05] MEDS ORDERED: NIFEdipine XL 30 MG TAB.ER.24 PO STA (06:48)
[2020-10-05] MEDS ORDERED: NIFEdipine XL 30 MG TAB.ER.24 PO SCH (09:00)
[2020-10-05] MEDS: SENNOSIDES-DOCUSATE SODIUM 1 EACH TAB PO SCH (09:21)
[2020-10-05] MEDS: IBUPROFEN 600 MG TAB PO PRN (09:23)
[2020-10-05 12:32] LABS: Basophils % (A) 0 %; Eosinophils # (A) 0.2 k/uL (0-0.7); Eosinophils % (A) 2 %; HCT 33.8 % (34.0-46.0); HGB 11.3 gm/dL (11.4-16.0); Lymphocytes # (A) 1.6 k/uL (1.0-4.8); Lymphocytes % (A) 16 %; MCH 30.4 pg (25.0-35.0); MCHC 33.3 g/dL (31.0-37.0); MCV 91.4 fL (80.0-100.0); Mean Platelet Volume 8.2; Monocytes # (A) 0.4 k/uL (0-1.0); Monocytes % (A) 5 %; Neutrophils # (A) 7.2 k/uL (1.3-7.7); Neutrophils % (A) 76 %; Platelet Count 296 k/uL (150-450); RDW 12.9 % (11.5-15.5); WBC 9.5 k/uL (3.8-10.6)
[2020-10-05 12:41] LABS: ALT 44 U/L (4-34); AST 38 U/L (14-36); African American GFR (CKD) >90 (>60 ml/min/1.73 sqM); Alkaline Phosphatase 133 U/L (38-126); Anion Gap 6 mmol/L; Blood Urea Nitrogen 11 mg/dL (7-17); Calcium 8.8 mg/dL (8.4-10.2); Carbon Dioxide 27 mmol/L (22-30); Chloride 105 mmol/L (98-107); Glucose 76 mg/dL (74-99); LDH 1087 U/L (313-618); Non-African American GFR(CKD) >90 (>60 ml/min/1.73 sqM); Potassium 4.3 mmol/L (3.5-5.1); Sodium 138 mmol/L (137-145); Total Bilirubin 0.6 mg/dL (0.2-1.3); Total Protein 5.9 g/dL (6.3-8.2); Uric Acid 4.2 mg/dL (3.7-7.4)
[2020-10-05] MEDS ORDERED: CALCIUM GLUCONATE 1 GM/10 ML VIAL IV PRN (12:57)
--- NOTE | 2020-10-05 13:05 | P.CRDCN ---
History of Present Illness Consult date: 10/05/20 History of present illness: This is a very pleasant 39-year-old female patient who was diagnosed recently with gestational and underwent . We consulted to see the patient to control the blood pressure. The patient was diagnosed with preeclampsia. Her liver function test came in to be elevated. She was initially started on labetalol but the pressure continues to be elevated and because of that labetalol was stopped and the patient was started on Procardia 30 mg by mouth daily. We consulted to her for further evaluation on management of elevated blood pressure. Her pressure continues to be elevated with an average systolic pressure around 150 mmHg to 160 mmHg. Clinically the patient is doing very well. She denies any symptoms of chest pain or chest discomfort or shortness of breath or dizziness or lightheadedness or any feeling of heart racing or fluttering. She does have bilateral lower extremities and edema. Her cardiovascular examination revealed regular rate and rhythm. No EKG was performed and the patient is in process of getting an EEG. Also she is in process of getting an echocardiogram was Doppler. 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 Past Medical History Past Medical History: No Reported History Additional Past Medical History / Comment(s): Uterine fibroids; Gestational hypertension; Gestational diabetes History of Any Multi-Drug Resistant Organisms: None Reported Past Surgical History: No Surgical Hx Reported Past Psychological History: No Psychological Hx Reported Smoking Status: Never smoker Past Alcohol Use History: None Reported Past Drug Use History: None Reported - Past Family History Mother Family Medical History: Unable to Obtain Medications and Allergies Home Medications Medication Instructions Recorded Confirmed Type Pnv No.95/Ferrous Fum/Folic AC 1 each PO DAILY 09/12/20 09/12/20 History [ Multivitamin Tablet] HYDROcodone/APAP 5-325MG [[place] 1 each PO Q4HR PRN #30 tab 10/05/20 Rx 5-325] Ibuprofen [Motrin] 600 mg PO Q6HR PRN #60 tab 10/05/20 Rx NIFEdipine XL [Procardia XL] 30 mg PO DAILY #30 tab.er.24 10/05/20 Rx Allergies Allergy/AdvReac Type Severity Reaction Status Date / Time No Known Allergies Allergy Verified 10/01/20 06:32 Physical Exam Vitals: Vital Signs Temp Pulse Resp BP BP Pulse Ox 02/20/21 11:53 169/99 160/93 10/05/20 08:30 149/87 10/05/20 08:00 74 15 10/05/20 06:42 179/108 10/05/20 06:00 98.0 F 74 15 161/86 98 10/04/20 22:00 97.9 F 75 16 141/84 97 10/04/20 21:00 97.9 F 76 16 154/86 97 10/04/20 13:49 82 14 131/89 Intake and Output 10/04/20 10/05/20 10/05/20 22:59 06:59 14:59 Other: Voiding Method Toilet - Constitutional General appearance: no acute distress - Respiratory Respiratory: bilateral: CTA - Cardiovascular Rhythm: regular Heart sounds: normal: S1, S2 Results 10/05/20 12:11 10/05/20 12:11 Cardiac Enzymes 10/05/20 Range/Units 12:11 AST 38 H (14-36) U/L Lactate Dehydrogenase 1087 H (313-618) U/L CBC 10/05/20 Range/Units 12:11 WBC 9.5 (3.8-10.6) k/uL RBC 3.70 L (3.80-5.40) m/uL Hgb 11.3 L (11.4-16.0) gm/dL Hct 33.8 L (34.0-46.0) % Plt Count 296 (150-450) k/uL Comprehensive Metabolic Panel 10/05/20 Range/Units 12:11 Sodium 138 (137-145) mmol/L Potassium 4.3 (3.5-5.1) mmol/L Chloride 105 (98-107) mmol/L Carbon Dioxide 27 (22-30) mmol/L BUN 11 (7-17) mg/dL Creatinine 0.57 (0.52-1.04) mg/dL Glucose 76 (74-99) mg/dL Calcium 8.8 (8.4-10.2) mg/dL AST 38 H (14-36) U/L ALT 44 H (4-34) U/L Alkaline Phosphatase 133 H (38-126) U/L Total Protein 5.9 L (6.3-8.2) g/dL Albumin 3.0 L (3.5-5.0) g/dL Current Medications Generic Name Dose Route Start Last Admin Trade Name Freq PRN Reason Stop Dose Admin Acetaminophen 650 mg 10/01/20 22:09 10/03/20 20:13 Acetaminophen Tab 325 Mg Tab PO 650 mg Q4HR PRN Administration Mild Pain or Fever >= 100.5 Hydrocodone Bitart/Acetaminophen 1 each 10/01/20 22:09 10/04/20 21:30 Hydrocodone/Apap 5-325mg 1 Each Tab PO 1 each Q4HR PRN Administration Moderate Pain Hydrocodone Bitart/Acetaminophen 1 each 10/01/20 22:09 Hydrocodone/Apap 7.5-325mg 1 Each Tab PO Q6H PRN Severe Pain Butorphanol Tartrate 1 mg 10/01/20 14:57 10/01/20 17:06 Butorphanol 1 Mg/Ml 1 Ml Vial IV 1 mg Q2HR PRN Administration Pain Diphenhydramine HCl 25 mg 10/01/20 22:09 Diphenhydramine 25 Mg Cap PO Q6HR PRN Mild Itching Diphenhydramine HCl 50 mg 10/01/20 22:09 Diphenhydramine 50 Mg Cap PO Q6HR PRN Moderate to Severe itching Diphenhydramine HCl 25 mg 10/01/20 22:09 Diphenhydramine 50 Mg/Ml 1 Ml Vial IVP Q6HR PRN Mild Itching Diphenhydramine HCl 50 mg 10/01/20 22:09 Diphenhydramine 50 Mg/Ml 1 Ml Vial IVP Q6HR PRN Moderate to Severe Itching Emollient Ointment 1 applic 10/01/20 22:09 Lanolin Cream 5 Gm Tube TOPICAL Q2HR PRN Breast Feeding Ibuprofen 600 mg 10/01/20 22:09 10/05/20 09:23 Ibuprofen 600 Mg Tab PO 600 mg Q6HR PRN Administration Mild Pain or Fever >= 100.5 Ketorolac Tromethamine 15 mg 10/01/20 22:09 10/02/20 03:07 Ketorolac 15 Mg/Ml 1 Ml Vial IVP 10/06/20 22:10 15 mg Q6HR PRN Administration Mild Pain Metoclopramide HCl 10 mg 10/01/20 22:09 Metoclopramide 5 Mg/Ml 2 Ml Vial IVP Q6HR PRN Nausea And Vomiting Naloxone HCl 0.2 mg 10/01/20 22:09 Naloxone 0.4 Mg/Ml 1 Ml Vial IV Q2M PRN Opioid Reversal Nifedipine 30 mg 10/06/20 09:00 Nifedipine Xl 30 Mg Tab.Er.24 PO DAILY [facility] Ondansetron HCl 4 mg 10/01/20 22:09 Ondansetron 4 Mg/2 Ml Vial IVP Q24H PRN Nausea And Vomiting Oxytocin 10 unit 10/01/20 06:32 Oxytocin 10 Unit/Ml 1 Ml Vial IM ONCE PRN Post Hemorrhage Senna/Docusate Sodium 2 each 10/02/20 08:00 10/05/20 09:21 Sennosides-Docusate Sodium 1 Each Tab PO Not Given BID@0800,1999 [facility] Simethicone 80 mg 10/01/20 22:09 Simethicone 80 Mg Chewable PO PCHS PRN Indigestion Zolpidem Tartrate 5 mg 10/01/20 22:09 Zolpidem 5 Mg Tab PO HS PRN Insomnia Intake and Output 10/04/20 10/05/20 10/05/20 22:59 06:59 14:59 Other: Voiding Method Toilet 10/05/20 12:11 10/05/20 12:11 Assessment and Plan Assessment: Assessment #1 status post #2 uncontrolled blood pressure Plan #1 continue the current dose of Procardia #2 start the patient on Coreg 3.125 mg by mouth twice a day #3 continue monitor the blood pressure and adjust medications accordingly #4 obtain an EKG next #5 obtain an echocardiogram Thank you for allowing us participate in her care and will follow-up with the patient
[2020-10-05] MEDS ORDERED: MAGNESIUM SULFATE GM 6 GM in SODIUM CHLORIDE 0.9% 100 ML IVPB ONE (13:15)
--- NOTE | 2020-10-05 13:28 | P.PN ---
Progress Note - Text Progress Note Date: 10/05/20 Called by nurse regarding BPs still elevated. Pt. still asymptomatic. Discharge cancelled. Preeclamptic labs ordered. Liver enzymes and LDH are now elevated (normal on 09/30/2020). Spoke with Dr. Eddy. He is ordering cardiac echo. I will start Magnesium sulfate seizure prophylaxis. He will add Coreg to the Procardia. Will repeat labs in the morning. Continue close monitoring.
[2020-10-05] MEDS: LACTATED RINGERS 1,000 ML IV SCH (14:06)
[2020-10-05] MEDS: MAGNESIUM SULFATE-WATER PMX 20 GM in WATER FOR INJECTION 1 500ML.BAG IV SCH ×2 (14:33→23:17)
[2020-10-05] MEDS: carvediloL 3.125 MG TAB PO SCH (16:56)
[2020-10-06] MEDS: IBUPROFEN 600 MG TAB PO PRN (01:20)
[2020-10-06] MEDS: LACTATED RINGERS 1,000 ML IV SCH (02:50)
[2020-10-06] MEDS: SENNOSIDES-DOCUSATE SODIUM 1 EACH TAB PO SCH ×2 (05:25→07:19)
[2020-10-06 06:20] LABS: Basophils % (A) 0 %; Eosinophils # (A) 0.2 k/uL (0-0.7); Eosinophils % (A) 3 %; HCT 36.5 % (34.0-46.0); Lymphocytes # (A) 1.6 k/uL (1.0-4.8); Lymphocytes % (A) 18 %; MCHC 32.9 g/dL (31.0-37.0); MCV 91.2 fL (80.0-100.0); Mean Platelet Volume 7.6; Monocytes # (A) 0.5 k/uL (0-1.0); Monocytes % (A) 5 %; Neutrophils # (A) 6.6 k/uL (1.3-7.7); Neutrophils % (A) 73 %; Platelet Count 306 k/uL (150-450); RDW 12.8 % (11.5-15.5); WBC 9.1 k/uL (3.8-10.6)
[2020-10-06 06:30] LABS: ALT 39 U/L (4-34); AST 30 U/L (14-36); African American GFR (CKD) >90 (>60 ml/min/1.73 sqM); Blood Urea Nitrogen 10 mg/dL (7-17); LDH 1040 U/L (313-618); Non-African American GFR(CKD) >90 (>60 ml/min/1.73 sqM); Uric Acid 3.8 mg/dL (3.7-7.4)
[2020-10-06] MEDS: carvediloL 3.125 MG TAB PO SCH ×2 (07:19→17:22)
[2020-10-06] MEDS ORDERED: NIFEdipine XL 30 MG TAB.ER.24 PO SCH (09:00)
--- NOTE | 2020-10-06 09:59 | ECHOF ---
Referral Reason:increased blood pressures MEASUREMENTS -------- HEIGHT: 157.5 cm WEIGHT: 64.4 kg BP: RVIDd: 2.2 cm (< 3.3) IVSd: 0.7 cm (0.6 - 1.1) LVIDd: 3.8 cm (3.9 - 5.3) LVPWd: 1.2 cm (0.6 - 1.1) IVSs: 1.2 cm LVIDs: 3.0 cm LVPWs: 1.2 cm LA Diam: 3.2 cm (2.7 - 3.8) LAESV Index (A-L): 29.35 ml/m Ao Diam: 2.1 cm (2.0 - 3.7) AV Cusp: 1.5 cm (1.5 - 2.6) MV EXCURSION: 16.638 mm (> 18.000) MV EF SLOPE: 98 mm/s (70 - 150) EPSS: 0.3 cm MV E Nguyễn: 1.24 m/s MV DecT: 103 ms MV A Nguyễn: 0.89 m/s MV E/A Ratio: 1.39 RAP: 5.00 mmHg RVSP: 32.76 mmHg FINDINGS -------- Sinus rhythm. This was a technically good study. LV size, wall thickness and systolic function are normal, with an EF greater than 55%. The left leah tricular size is normal. The right ventricle is normal in size. LA is midly dilated 29-33ml/m2. The right atrial size is normal. The aortic valve is trileaflet, and appears structurally normal. No aortic stenosis or regurgitation. Moderate mitral regurgitation is present. Mild tricuspid regurgitation present. The right ventricular systolic pressure, as measured by Doppl er, is 32.76mmHg. There is no pulmonic regurgitation present. The aortic root size is normal. There is no pericardial effusion. CONCLUSIONS -------- 1. LV size, wall thickness and systolic function are normal, with an EF greater than 55%. 2. The left ventricular size is normal. 3. The right ventricle is normal in size. 4. LA is midly dilated 29-33ml/m2. 5. The right atrial size is normal. 6. Moderate mitral regurgitation is present. 7. Mild tricuspid regurgitation present. 8. The right ventricular systolic pressure, as measured by Doppler, is 32.76mmHg. 9. There is no pulmonic regurgitation present. 10. The aortic root size is normal. 11. There is no pericardial effusion. ZIPPER CUTTER: Sissy Julio RDCS
--- NOTE | 2020-10-06 11:07 | P.PN ---
Subjective Progress Note Date: 10/06/20 Principal diagnosis: Hypertension This is a 39-year-old female patient who we consulted to see for further evaluation of uncontrolled blood pressure. The patient underwent few days ago. When she was seen yesterday we added Coreg to the current medical regimen and also we ordered an echocardiogram. The patient was seen today. She is asymptomatic from a cardiac vascular standpoint overview. The blood pressure is definitely coming down. She continues to be on Procardia and also she is on Coreg which was started yesterday. She is diuresing very well. The echo was reviewed and showed normal left ventricular systolic function. From a cardiac vascular standpoint of view, the patient potential he can be discharged home and she needs to be seen in one to 2 weeks to continue managing the blood pressure. The liver function test has been coming down. Objective - Vital Signs Vital signs: Vital Signs Temp 98.1 F 10/06/20 07:00 Pulse 72 10/06/20 08:58 Resp 17 10/06/20 08:58 BP 141/92 10/06/20 10:00 Pulse Ox 98 10/06/20 07:00 Intake & Output 10/05/20 10/06/20 10/06/20 18:59 06:59 18:59 Intake Total 615.75 1936.667 375 Output Total 3050 4350 900 Balance -2434.25 -2413.333 -525 Weight 61.235 kg Intake: IV 100 Magnesium Sulfate-Water 100 Pmx 20 gm In Water For Injection 1 500ml.bag @ 2 GM/HR 50 mls/hr IV .Q10H BHAKTI Rx#:[id number] Intake, IV Titration 615.75 1936.667 275 Amount Lactated Ringers 1,000 ml 290.75 900 275 @ 75 mls/hr IV .[id number] BHAKTI Rx#:[id number] Magnesium Sulfate gm 6 gm 113 In Sodium Chloride 0.9% 100 ml @ 300 mls/hr IVPB ONCE ONE Rx#:[id number] Magnesium Sulfate-Water 212 1036.667 Pmx 20 gm In Water For Injection 1 500ml.bag @ 2 GM/HR 50 mls/hr IV .Q10H BHAKTI Rx#:[id number] Output: Urine 3050 4350 900 Other: Voiding Method Toilet # Voids 1 - Constitutional General appearance: Present: no acute distress - Respiratory Respiratory: bilateral: CTA - Cardiovascular Rhythm: regular Heart sounds: normal: S1, S2 - Labs CBC & Chem 7: 10/06/20 05:43 10/06/20 05:43 Labs: Abnormal Lab Results - Last 24 Hours (Table) 10/05/20 10/05/20 10/06/20 Range/Units 12:11 12:11 05:43 RBC 3.70 L (3.80-5.40) m/uL Hgb 11.3 L (11.4-16.0) gm/dL Hct 33.8 L (34.0-46.0) % AST 38 H (14-36) U/L ALT 44 H 39 H (4-34) U/L Alkaline Phosphatase 133 H (38-126) U/L Lactate Dehydrogenase 1087 H 1040 H (313-618) U/L Total Protein 5.9 L (6.3-8.2) g/dL Albumin 3.0 L (3.5-5.0) g/dL Assessment and Plan Assessment: Assessment #1 status post #2 uncontrolled blood pressure Plan #1 continue the current medical regimen #2 continue Procardia and Corag #3 the patient can be discharged home
[2020-10-06 12:06] VITALS: RESP 16
--- NOTE | 2020-10-06 12:11 | P.DS ---
Providers Date of admission: 10/01/20 06:12 Expected date of discharge: 10/06/20 Attending physician: Sadia Reyes Consults: 10/05/20 12:12 Consult Physician Stat Consulting Provider: Chriss Eddy Consult Reason/Comments: continued gestational hypertension after delivery Do you want consulting provider notified?: Yes Primary care physician: Stated None - Discharge Diagnosis(es) (1) 37 weeks gestation of Current Visit: No Status: Acute (2) Gestational hypertension Current Visit: No Status: Acute (3) Gestational diabetes Current Visit: No Status: Acute (4) Advanced maternal age (AMA) in Current Visit: No Status: Acute (5) Leiomyoma in , uterine, antepartum Current Visit: No Status: Acute (6) Group B Streptococcus carrier, +RV culture, currently Current Visit: No Status: Acute Hospital Course: This is a 39-year-old female 3 para 0 at 37-5/7 weeks who was initially admitted for induction of labor secondary to gestational hypertension along with gestational diabetes. She underwent oxytocin induction of labor and then required a primary low transverse section on 10/01/2020. She was tr eated with multiple doses of labetalol during labor along with 1 dose of Apresoline. Postoperatively she initially did well but then her blood pressures started to increase by postoperative day #3, despite oral blood pressure medication. Cardiology was consulted and she was also placed on magnesium sulfate seizure prophylaxis due to increasing liver enzymes. Her liver enzymes did start to come down this morning and her magnesium sulfate was discontinued. Her blood pressures have been staying in the 140s over 90s range. Cardiology did add Coreg to her Procardia. She still denies any headaches, blurry vision, or epigastric pain. She is passing flatus and bowel movement. Her swelling in her legs has gone down considerably. She is bottle feeding now. Baby was on a bili blanket but is doing better now. Her vital signs are stable at this point with blood pressures in the 140s over 90s with one elevated to 150s over high 90s recently. Abdomen is soft with positive bowel sounds 4. Incision is clean dry and intact with tyler in place. Extremities show negative Homans and no swelling currently. Impression is status post primary low transverse section postoperative day #5, preeclampsia, gestational diabetes, uterine fibroids. Plan is to discharge home later today after does confirm her blood pressures are stable. She will be sent home on ibuprofen, [place], Procardia 30 XL daily, and Coreg twice a day. She is advised follow-up with me in the office in approximately 1 week for postoperative check and with cardiology in approximately 1 week. She is advised to call the office if she has any further questions or concerns prior to her appointment time. Routine postoperative and instructions are given. Procedures: Oxytocin induction of labor Primary low transverse section on 10/01/2020 Patient Condition at Discharge: Stable Plan - Discharge Summary New Discharge Prescriptions: New RX: Ibuprofen [Motrin] 600 mg PO Q6HR PRN #60 tab PRN Reason: Mild Pain Or Fever >= 100.5 RX: HYDROcodone/APAP 5-325MG [[place] 5-325] 1 each PO Q4HR PRN #30 tab PRN Reason: Moderate Pain RX: NIFEdipine XL [Procardia XL] 30 mg PO DAILY #30 tab.er.24 RX: carvediloL [Coreg] 3.125 mg PO BID-W/MEALS #60 tab Continue RX: Pnv No.95/Ferrous Fum/Folic AC [ Multivitamin Tablet] 1 each PO DAILY Discontinued RX: Aspirin 81 mg PO DAILY Discharge Medication List RX: Pnv No.95/Ferrous Fum/Folic AC [ Multivitamin Tablet] 1 each PO DAILY 09/12/20 [History] RX: HYDROcodone/APAP 5-325MG [[place] 5-325] 1 each PO Q4HR PRN #30 tab 10/05/20 [Rx] RX: Ibuprofen [Motrin] 600 mg PO Q6HR PRN #60 tab 10/05/20 [Rx] RX: NIFEdipine XL [Procardia XL] 30 mg PO DAILY #30 tab.er.24 10/05/20 [Rx] RX: carvediloL [Coreg] 3.125 mg PO BID-W/MEALS #60 tab 10/06/20 [Rx] Follow up Appointment(s)/Referral(s): Sadia Reyes DO [Doctor of Osteopathic Medicine] - 1 Week Chriss Eddy MD [STAFF PHYSICIAN] - 1 Week Patient Instructions/Handouts: (DC) Activity/Diet/Wound Care/Special Instructions: Instructions 1. Do not begin any exercise program for 3 weeks. 2. Do not resume sexual relations for 3 weeks or longer if uncomfortable. 3. You may take tub baths or showers at any time. 4. You may use tampons if desired after 3 weeks. 5. Keep the area of episiotomy (stitches) clean and dry. 6. If you are not nursing, wear a good fitting, supportive bra during the day and limit fluid intake for at least 1 week to prevent breast engorgement. 7. Call the office, [phone], within the next week to make appointment for your 6 week checkup if it has not already been made. 8. Report any of the following occurrences to the doctor promptly: a. Heavy, excessive bleeding b. Chills, fever c. Burning or frequency of urination d. Pain or redness and breasts if nursing e. Increasing pain or swelling in episiotomy (stitches). In addition to the above instructions, the following additional should be followed: 1. No heavy lifting or straining (exercising) until after 6 week checkup. 2. Keep abdominal incision clean and dry: You may wear a dressing if more comfortable. 3. Make office appointment for 10 days after going home or as instructed by her doctor. Discharge Disposition: HOME SELF-CARE
[2020-10-06 16:15] VITALS: BP 142/92; PULSE 84; TEMP 98.1
== END 2020-10-06 17:50 | disposition home or self-care (01) | DRG 788 ==
LOC: 4FBP 06:12
PROVIDERS: ADMIT Obstetrics & Gynecology; ATTEND Obstetrics & Gynecology
PROC: 10D00Z1 Extraction of Products of Conception, Low, Open Approach (ICD-10-PCS; principal; 2020-10-01 19:54)
DX: O69.81X0 Labor and delivery complicated by cord around neck, without compression, not applicable or unspecified (principal); O99.824 Streptococcus B carrier state complicating childbirth; O24.420 Gestational diabetes mellitus in childbirth, diet controlled; O14.94 Unspecified pre-eclampsia, complicating childbirth; D25.9 Leiomyoma of uterus, unspecified; O34.13 Maternal care for benign tumor of corpus uteri, third trimester; Z3A.37 37 weeks gestation of pregnancy; O32.4XX0 Maternal care for high head at term, not applicable or unspecified; O62.2 Other uterine inertia; Z37.0 Single live birth; Z79.82 Long term (current) use of aspirin; Z79.899 Other long term (current) drug therapy
CPT/HCPCS: 80053; 82565; 83036; 83615; 84450; 84460; 84520; 84550; 85025; 86850; 86900; 86901; 88307; 93005; 93306

== ENCOUNTER → 2022-12-02 | Outpatient (CLI) | payer BC ==
--- NOTE | 2022-12-02 13:04 | MM ---
Reason for Exam: Screening (asymptomatic). Baseline mammogram. Patient History: Menarche at age 12. First Full-Term at age 39. Late child-bearing (after 30). Last menstrual period: 11/10/2022 Risk Values: Rosalind 5 year model risk: 0.8%. NCI Lifetime model risk: 14.9%. Prior Study Comparison: Patient's first Mammogram. Tissue Density: The breast tissue is heterogeneously dense. This may lower the sensitivity of mammography. Findings: Analyzed By CAD. There is no suspicious group of microcalcifications or suspicious mass in either breast. Overall Assessment: Negative, BI-RAD 1 Management: Screening Mammogram of both breasts in 1 year. A clinical breast exam by your physician is recommended on an annual basis and results should be correlated with mammographic findings. Electronically signed and approved by: Balbir Soliz D.O.
== END | disposition home or self-care (01) ==
LOC: RADMAMWWP 06:52
PROVIDERS: ATTEND Family Medicine
DX: Z12.31 Encounter for screening mammogram for malignant neoplasm of breast (principal)
CPT/HCPCS: 77063; 77067